=== PATIENT | female | born 1990 | race Two or more races ===

== ENCOUNTER 2017-10-28 04:07 | Emergency (ER) | payer SELFPAY ==
[~2017-10-28] VITALS: Ht 172.7 cm; Wt 72.1 kg
[2017-10-28 04:26] VITALS: BP 119/74
--- NOTE | 2017-10-28 05:08 | Emergency Room Report ---
History of Present Illness General Chief Complaint: Animal Bite Source: Patient Present Illness HPI This is a 27-year-old female presents with a dog bite to the face. She was playing with her dog and it snapped at her. She sustained bite felicia to the right cheek area. Occurred just prior to arrival. No other injury. Throbbing pain with palpation. The dog is a family pet and shots up-to-date. Allergies: Coded Allergies: No Known Allergies (Unverified , 10/28/17) Patient History Past Medical History: see triage record Past Surgical History: none Pertinent Family History: none Social History: Reports: alcohol use - social Last Menstrual Period: 3 months ago Now: No Immunizations: UTD Reviewed Nursing Documentation: PMH: Agreed; PSxH: Agreed Nursing Documentation-PMH Past Medical History: No History, Except For History Of Psychiatric Problem: Yes - anxiety Review of Systems Eye: Denies: eye pain, blurred vision ENT: Denies: ear pain, nose congestion, throat swelling Respiratory: Denies: cough, shortness of breath Cardiovascular: Denies: chest pain, palpitations Gastrointestinal: Denies: abdominal pain, diarrhea, nausea, vomiting Musculoskeletal: Denies: back pain, joint pain Skin: Denies: rash Neurological: Denies: headache, numbness Endocrine: Denies: increased thirst, increased urine Hematologic/Lymphatic: Denies: easy bruising All Other Systems: negative except mentioned in HPI Physical Exam Vital Signs Date Time Temp Pulse Resp B/P (MAP) Pulse Ox O2 Delivery O2 Flow Rate FiO2 10/28/17 04:19 97.9 97 14 119/74 98 Room Air 97.9 vitals normal Sp02 EP Interpretation: reviewed, normal General Appearance: well appearing, no apparent distress, alert Head: normocephalic, atraumatic Eyes: bilateral eye PERRL, bilateral eye EOMI ENT: hearing grossly normal, normal pharynx, other - Right cheek: There is a 1 cm laceration to the upper part of the cheek just beneath the zygomatic arch. No foreign body. Not through and through. 2 it is a small puncture felicia and abrasion. This measured about 3 mm. Just lateral to the mouth there is a T- shaped laceration measuring about 2 cm. Not through and through. No foreign body. Neck: full range of motion, supple, no meningismus Respiratory: chest non-tender, lungs clear, normal breath sounds Cardiovascular #1: regular rate, rhythm, no murmur Gastrointestinal: normal bowel sounds, non tender, no mass, no organomegaly, no bruit, non-distended Musculoskeletal: back normal, gait/station normal, normal range of motion Psychiatric: mood/affect normal Skin: warm/dry Procedures Laceration/Wound Repair Laceration/Wound Repair : Consent: Verbal Wound Location: face Wound's Depth, Shape: irregular Wound Length (cm): 3 Wound Explored: clean Irrigated w/ Saline (ccs): 1000 Anesthesia: 1% Lidocaine Volume Anesthetic (ccs): 3 Wound Repaired With: sutures Suture Size/Type: 6:0, other - vicryl Number of Sutures: 9 Patient Tolerated: Well Complications: None Medical Decision Making Diagnostic Impression: Primary Impression: Bite by animal Additional Impression: Facial laceration Qualified Codes: S01.81XA - Laceration without foreign body of other part of head, initial encounter ER Course Patient presents with dog bite to the face with laceration. I sutured it for cosmetic reasons. No evidence of infection. We'll discharge home with antibiotics. Last Vital Signs Date Time Temp Pulse Resp B/P (MAP) Pulse Ox O2 Delivery O2 Flow Rate FiO2 10/28/17 04:26 97.9 97 14 119/74 98 Room Air 97.9 Status: improved Disposition: HOME, SELF-CARE Condition: Stable Scripts Amoxicillin/Potassium Clav 875-125* (AUGMENTIN 875-125 TABLET*) 1 Each Tablet 1 TAB ORAL TWICE A DAY, #14 TAB Prov: SRINATH FOX M.D. 10/28/17 Patient Instructions: Animal Bite Additional Instructions: Follow-up your doctor in 7 days. Sutures will fall off. If they don't fall off in 7 days, have them removed. Return if symptom worsen. SRINATH FOX M.D. Oct 28, 2017 05:08
[2017-10-28] MEDS ORDERED: AUGMENTIN 875-1 EAC1 ORAL (05:09)
[2017-10-28 05:23] VITALS: BP 119/74
== END 2017-10-28 05:23 | disposition home or self-care (01) ==
LOC: EMR 04:30
DX: S01.411A Laceration without foreign body of right cheek and temporomandibular area, initial encounter (principal); W54.0XXA Bitten by dog, initial encounter; Y92.009 Unspecified place in unspecified non-institutional (private) residence as the place of occurrence of the external cause; F41.9 Anxiety disorder, unspecified

== ENCOUNTER 2018-06-04 23:27 | Emergency (ER) | payer BC ==
[~2018-06-04] VITALS: Ht 172.7 cm; Wt 71.7 kg
[~2018-06-04 23:27] MED LIST: AUGMENTIN 875-1 EAC1 ORAL
[2018-06-04] MEDS ORDERED: FLUOXETINE HCL40 MG ORAL (23:34)
[2018-06-04 23:35] VITALS: BP 127/86
--- NOTE | 2018-06-04 23:35 | NUR ---
ED Nurse Note: Patient presents to ED c/o laceration to left index finger while opening a can 30x minutes ago. pt stated 3/10 pain. will continue to monitor.
[2018-06-05] MEDS ORDERED: Lidocaine 1% Plain 30 ml INJ ONE ×2 (00:29→00:30)
[2018-06-05] MEDS ORDERED: Bacitracin Oint UD TOPIC ONE (00:30)
[2018-06-05] MEDS ORDERED: Tetanus/Diptheria/Pertussis Vaccine 0.5ml Syr IM ONE (00:30)
--- NOTE | 2018-06-05 00:55 | Emergency Room Report ---
History of Present Illness General Chief Complaint: Laceration Source: Patient Present Illness HPI Is a 27-year-old female who is right-hand dominant. She present with a laceration over her left hand. Onset was just prior to arrival. She try to open up a bottle with a butter knife. She sustained a laceration. No other injury. Tetanus is unknown. No fever or chills. Bleeding is controlled with pressure. Denies any other complaint. Allergies: Coded Allergies: No Known Allergies (Unverified , 10/28/17) Patient History Past Medical History: see triage record, old chart reviewed Past Surgical History: none Pertinent Family History: none Social History: Denies: smoking Last Menstrual Period: [id number] Now: No : 0 Para: 0 Immunizations: other Reviewed Nursing Documentation: PMH: Agreed; PSxH: Agreed Nursing Documentation-PMH Past Medical History: No Stated History Review of Systems Eye: Denies: eye pain, blurred vision ENT: Denies: ear pain, nose congestion, throat swelling Respiratory: Denies: cough, shortness of breath Cardiovascular: Denies: chest pain, palpitations Gastrointestinal: Denies: abdominal pain, diarrhea, nausea, vomiting Musculoskeletal: Denies: back pain, joint pain Skin: Denies: rash Neurological: Denies: headache, numbness Endocrine: Denies: increased thirst, increased urine Hematologic/Lymphatic: Denies: easy bruising All Other Systems: negative except mentioned in HPI Physical Exam Vital Signs Date Time Temp Pulse Resp B/P (MAP) Pulse Ox O2 Delivery O2 Flow Rate FiO2 06/04/18 23:31 98.4 77 16 127/86 96 Room Air vitals normal Sp02 EP Interpretation: reviewed, normal General Appearance: well appearing, no apparent distress, alert Head: normocephalic, atraumatic Eyes: bilateral eye PERRL, bilateral eye EOMI ENT: hearing grossly normal, normal pharynx Neck: full range of motion, supple, no meningismus Respiratory: chest non-tender, lungs clear, normal breath sounds Cardiovascular #1: regular rate, rhythm, no murmur Gastrointestinal: normal bowel sounds, non tender, no mass, no organomegaly, no bruit, non-distended Musculoskeletal: back normal, gait/station normal, normal range of motion, other - Left hand: Over the MCP joint of the index finger there is a 2 mm laceration. No foreign body. No tendon laceration. Full range of motion. Sensation normal. Psychiatric: mood/affect normal Skin: warm/dry Procedures Laceration/Wound Repair Laceration/Wound Repair : Consent: Verbal Wound Location: upper extremity Wound's Depth, Shape: linear Wound Length (cm): 2 Wound Explored: clean Irrigated w/ Saline (ccs): 1000 Betadine Prep?: Yes Anesthesia: 1% Lidocaine Volume Anesthetic (ccs): 2 Wound Repaired With: sutures Suture Size/Type: 5:0, proline Number of Sutures: 3 Patient Tolerated: Well Complications: None Medical Decision Making Diagnostic Impression: Primary Impression: Laceration ER Course Patient with hand laceration. No foreign body. No tendon laceration. We'll discharge home. Low risk for infection. Last Vital Signs Date Time Temp Pulse Resp B/P (MAP) Pulse Ox O2 Delivery O2 Flow Rate FiO2 06/04/18 23:35 98.4 78 16 127/86 96 Room Air Status: improved Disposition: HOME, SELF-CARE Condition: Stable Patient Instructions: Laceration Care, Adult Additional Instructions: Follow-up your doctor in 7-10 days. Return for evidence of infection. Sutures out in 10 days. Return if worse. Alec North MD Jun 05, 2018 00:55
--- NOTE | 2018-06-05 00:56 | NUR ---
ED Nurse Note: pt was cleared for discharge by lien. pt had 3 stitches on the lac. denies pain. discharge instruction and presction explained and pt able to verbalize understanding. pt aox4. vss. id band removed. pt able to walk with steady gait. pt left the ed with all belongings
[2018-06-05 00:57] VITALS: BP 115/75
== END 2018-06-05 00:57 | disposition home or self-care (01) ==
LOC: EMR 23:59
DX: S61.211A Laceration without foreign body of left index finger without damage to nail, initial encounter (principal); Z23 Encounter for immunization; W26.0XXA Contact with knife, initial encounter; Y92.9 Unspecified place or not applicable
CPT/HCPCS: 12001; 90471; 90715; 99283; J2001